=== PATIENT | male | born 1955 | race Caucasian/White ===

== ENCOUNTER 2017-06-23 08:38 | Day surgery (SDC) | payer OTHER ==
[~2017-06-23 08:38] MED LIST: AMIT25 PO; AZIT250 PO; DULO60 PO; HYDACE10B; OXYC10ER PO; OXYC5 PO; PAXIL; PREG150 PO; ROSU10TA; ROSU10TA PO
== END 2017-06-23 23:56 | disposition home or self-care (01) ==
LOC: RAD 08:38
PROVIDERS: Radiology Diagnostic Radiology
PROC: BR20YZZ Computerized Tomography (CT Scan) of Cervical Spine using Other Contrast (ICD-10-PCS; principal; 2017-06-23 11:00)
DX: M50.11 Cervical disc disorder with radiculopathy, high cervical region (principal); Z98.1 Arthrodesis status
CPT/HCPCS: 62302; 72126; Q9967

== ENCOUNTER 2018-08-09 08:41 | Day surgery (SDC) | payer MEDICARE, OTHER ==
--- NOTE | 2018-08-09 10:14 | NUR ---
DRESSING C,D,I. PATIENT WATCHING TV, APPEARS COMFORTABLE.
--- NOTE | 2018-08-09 10:56 | NUR ---
PATIENT'S HAS ARRIVED TO BEDSIDE.
--- NOTE | 2018-08-09 11:40 | NUR ---
PATIENT DENIES ANY NUMBNESS, TINGLING, OR RADIATING DOWN BILATERAL LEGS, GOOD STRENGTH AND NO DIFFICULTY WITH STANDING.
--- NOTE | 2018-08-09 11:45 | NUR ---
PATIENT UP TO BR WITH STEADY AMBULATION, NO ISSUES, WILL D/C HOME.
== END 2018-08-09 11:46 | disposition home or self-care (01) ==
LOC: RAD 08:41
DX: M54.14 Radiculopathy, thoracic region (principal)
CPT/HCPCS: 62303; 72129; Q9966

== ENCOUNTER 2020-02-12 08:29 | Day surgery (SDC) | payer MEDICARE, OTHER ==
[~2020-02-12 08:29] MED LIST changes: +ALBU90OI61 INH; +SUBOXONE 12 MG1 EACH
--- NOTE | 2020-02-12 10:08 | NUR ---
Dressing to procedure site clean, dry, intact with no visible drainage, swelling, erythema or bruising noted. PT CHRONICALLY HAS NUMBNESS IN RLE AND NUEROLOGICALLY IS WEAKER ON THE PULL RLE AND WEAKER ON THE PUSH ON LLE. NO DEFICITS NOTED IN THE BUE. PT DENIES PAIN AT THIS TIME. PT AWARE OF SYMPTOMS TO REPORT TO STAFF. PT HAS A TENS UNIT IN R LOWER BACK. PROVIDED FLUIDS AND WARM BLANKETS AND REPOSTIONED FOR COMFORT.
--- NOTE | 2020-02-12 11:32 | NUR ---
Patient up to Ambulate independently. Gait steady. Discharge instructions reviewed with patient. Patient verbalizes understanding. Copy given to patient to take home. Dressing to procedure site clean, dry, intact with no visible drainage, swelling, erythema or bruising noted. PT KYLE RETUNED.
== END 2020-02-12 22:37 | disposition home or self-care (01) ==
LOC: RAD 08:29 → CT 10:00 → RAD 22:37
DX: M51.24 Other intervertebral disc displacement, thoracic region (principal); M51.25 Other intervertebral disc displacement, thoracolumbar region; M25.78 Osteophyte, vertebrae; M48.04 Spinal stenosis, thoracic region; M48.061 Spinal stenosis, lumbar region without neurogenic claudication; K59.00 Constipation, unspecified; R10.9 Unspecified abdominal pain; N40.0 Benign prostatic hyperplasia without lower urinary tract symptoms; E78.5 Hyperlipidemia, unspecified; J44.9 Chronic obstructive pulmonary disease, unspecified; Z79.899 Other long term (current) drug therapy
CPT/HCPCS: 62304; 72132; Q9966

== ENCOUNTER → 2022-10-05 | Outpatient (CLI) | payer MEDICARE, OTHER ==
[2022-10-05 08:13] LABS: Albumin, Blood 3.5 g/dL (3.4-5.0); Bilirubin, Total 0.5 mg/dL (0.1-1.0); Bun/Creatinine Ratio 15.1 (12.0-20.0); Calcium, Blood 8.6 mg/dL (8.5-10.1); Creatinine, Blood 1.06 mg/dL (0.60-1.20); Globulin, Blood 3.5 g/dL (2.2-4.0); Potassium, Blood 4.5 mmol/L (3.5-5.5)
[2022-10-05 08:29] LABS: BASOPHILS ABSOLUTE AUTO 0.02 K/mm3 (0.00-0.23); BASOPHILS PERCENT AUTO 1 % (0-2); EOSINOPHILS ABSOLUTE AUTO 0.01 K/mm3 (0.00-0.68); EOSINOPHILS PERCENT AUTO 0 % (0-6); Hemoglobin 15.7 g/dL (13.5-17.5); IMMATURE GRAN ABSOLUTE AUTO 0.01 K/mm3 (0.00-0.10); IMMATURE GRAN PERCENT AUTO 0 % (0-1); LYMPHOCYTES ABSOLUTE AUTO 0.57 K/mm3 (0.84-5.20); LYMPHOCYTES PERCENT AUTO 16 % (21-46); MONOCYTES ABSOLUTE AUTO 0.45 K/mm3 (0.16-1.47); MONOCYTES PERCENT AUTO 13 % (4-13); Mean Corpuscular HGB 31.8 pg (26.0-34.0); Mean Corpuscular HGB Conc 34.1 g/dL (31.5-36.5); Mean Corpuscular Volume 93 fL (80-100); Mean Platelet Volume 9.9 fL (9.1-12.4); NEUTROPHILS ABSOLUTE AUTO 2.42 K/mm3 (1.96-9.15); NEUTROPHILS PERCENT AUTO 70 % (41-73); Platelet Count 141 K/mm3 (150-400); RDW Coefficient Variation 12.8 % (11.7-14.2); RDW Standard Deviation 43.7 fL (35.1-46.3); Red Blood Cell Count 4.94 M/mm3 (4.30-5.90); White Blood Cell Count 3.48 K/mm3 (4.00-11.30)
== END | disposition home or self-care (01) ==
LOC: LAB 07:53 → LAB SHORT 07:53
PROVIDERS: Physician Assistant
DX: R07.9 Chest pain, unspecified (principal)
CPT/HCPCS: 80053; 84484; 85025